=== PATIENT | female | born 1965 | race Caucasian/White ===

== ENCOUNTER → 2017-06-03 | Outpatient (CLI) | payer OTHER ==
[~2017-06-03] MED LIST: CETI10TA18 PO; CHOL500045 PO; DOCU100T3 PO; GABA300C10 PO; HYDR-3240 PO; INSU100I28 SQ-INSULIN; LEVO112T2 PO; LEVO125T5 PO; METO25TA35 PO; METR500T PO; SULF1TAB24 PO
== END ==
LOC: CFH 09:55
PROVIDERS: ATTEND Orthopaedic Surgery
DX: S82.842P Displaced bimalleolar fracture of left lower leg, subsequent encounter for closed fracture with malunion (principal); M19.071 Primary osteoarthritis, right ankle and foot; X58.XXXD Exposure to other specified factors, subsequent encounter